=== PATIENT | female | born 1965 | race Caucasian/White ===

== ENCOUNTER → 2020-12-06 | Outpatient (CLI) | payer OTHER | LOC: EMI 08:20 | DX: M48.02 Spinal stenosis, cervical region (principal); M50.322 Other cervical disc degeneration at C5-C6 level | CPT/HCPCS: 72141 ==

== ENCOUNTER → 2021-01-22 | Outpatient (CLI) | payer OTHER | LOC: KOH-I 01-16 14:00 | DX: M48.02 Spinal stenosis, cervical region (principal); M50.321 Other cervical disc degeneration at C4-C5 level | CPT/HCPCS: 72040; 72125 ==